=== PATIENT | male | born 1990 | race Caucasian/White ===

== ENCOUNTER 2017-09-13 10:07 | Emergency (ER) | payer BC, SELFPAY ==
[2017-09-13] MEDS ORDERED: Ketorolac Tromethamine 30 MG/ML VIAL ONE (10:20)
[2017-09-13 10:40] LABS: #Basophils 0.1 thou/uL (0.0-0.2); #Eosinphils 0.1 thou/uL (0.0-0.7); #Monocytes 0.4 thou/uL (0.11-0.59); #Neutrophils 5.6 thou/uL (1.40-6.50); %Basophils 0.8 % (0.0-1.0); %Monocytes 5.3 % (0.0-10.0); %Neutrophils 78.9 % (42.0-75.0); Hemoglobin 16.7 g/dL (14.0-18.0); Mean Corpuscular HGB CONC 33.1 g/dL (32.0-36.0); Mean Corpuscular Hemoglobin 26.8 pg (27.0-31.0); Mean Corpuscular Volume 81.1 fl (80.0-94.0); Mean Platelet Volume 6.7 fL (7.4-10.4); Platelet Count 379 thou/uL (130-400); RBC Distribution Width 11.5 % (11.5-14.5); Red Blood Cell (RBC) Count 6.23 mill/uL (4.70-6.10); White Blood Cell (WBC) Count 7.1 thou/uL (4.8-10.8)
[2017-09-13 10:48] LABS: ALT (SGPT) 24 U/L (8-55); AST (SGOT) 19 U/L (5-34); Albumin 4.7 g/dL (3.5-5.0); Alkaline Phosphatase 95 U/L (40-150); Anion Gap 14 mmol/L (10-20); BUN (Urea Nitrogen) 16 mg/dL (8.9-20.6); Bilirubin, Total 0.7 mg/dL (0.2-1.2); Calc. Creatinine Clearance 0 mL/min (70-130); Calcium 10.1 mg/dL (7.8-10.44); Carbon Dioxide 29 mmol/L (22-29); Chloride 98 mmol/L (98-107); Estimated GFR-MDRD 85; Globulin 2.5 g/dL (2.4-3.5); Glucose 282 mg/dL (70-105); Lipase 14 U/L (8-78); Protein, Total 7.2 g/dL (6.0-8.3); Sodium 137 mmol/L (136-145)
--- NOTE | 2017-09-13 11:54 | CT ---
NONCONTRAST ENHANCED CT IMAGES OF THE ABDOMEN AND PELVIS: History: Abdominal pain and diarrhea. Technique: IV and oral contrast was not given per order of the ordering physician. This does decrease the sensitivity for detection of pathology. FINDINGS: The lung bases are unremarkable. No evidence of free intraperitoneal air is seen. The solid organs demonstrate no gross pathology, however, due to the fact that IV contrast was not gi eliezer, solid organ pathology cannot be excluded. The gallbladder has been surgically removed. Adrenal glands are of normal size. No evidence of renal calculi seen. No evidence of hydronephrosis seen. No dilated loops of small bowel seen. A normal appe ndix is visualized. No evidence of colonic dissection seen. IMPRESSION: 1. No evidence of bowel obstruction. 2. Normal appendix. 3. No evidence of renal calculi. POS: [facility]
[2017-09-13 11:57] LABS: Bilirubin Small (Negative); Blood, Urine Negative (Negative); Clarity Clear (Clear); Glucose, Urine (Dipstick) 500 mg/dL (Negative); Leukocyte Negative (Negative); Nitrite Negative (Negative); Protein, Urine (Dipstick) Trace mg/dL (Neg-Trace); Urobilinogen 0.2 mg/dL (0.2-1.0); pH, Urine 5.5 (5.0-9.0)
[2017-09-13 11:58] LABS: Specific Gravity, Urine Greater than 1.035 (1.002-1.036)
[2017-09-13 12:09] LABS: Amphetamine Not Detected (NotDetected); Barbiturates Screen Not Detected (NotDetected); Benzodiazepine Screen Not Detected (NotDetected); Cocaine Metabolite Screen Not Detected (NotDetected); Medtox Control Line Valid? VALID (VALID); Methadone Not Detected (NotDetected); Methamphetamine Not Detected (NotDetected); Opiate Screen Not Detected (NotDetected); Oxycodone Screen Not Detected (NotDetected); Phencyclidine (PCP) Not Detected (NotDetected); THC/Cannabinoid Screen Not Detected (NotDetected); Tricyclic Screen Not Detected (NotDetected)
== END 2017-09-13 13:50 | disposition home or self-care (01) ==
LOC: SCSER 10:07
DX: R11.2 Nausea with vomiting, unspecified (principal); R19.7 Diarrhea, unspecified; E10.9 Type 1 diabetes mellitus without complications; F17.220 Nicotine dependence, chewing tobacco, uncomplicated; J45.909 Unspecified asthma, uncomplicated; Z79.84 Long term (current) use of oral hypoglycemic drugs
CPT/HCPCS: 74176; 80053; 80306; 81003; 83605; 83690; 85025; 96361; 96372; 96374; J1885

== ENCOUNTER 2017-12-25 17:06 | Inpatient (IN) | payer SELFPAY ==
--- NOTE | 2017-12-25 17:49 | RAD ---
PORTABLE CHEST: Date: 12-25-17 Provided Clinical History: Cough, fever, body aches. Comparison: 08-20-13 FINDINGS: Cardiac and mediastinal silhouette is within normal limits. Lungs appear clear. No pleural fluid or p neumothorax apparent. IMPRESSION: No evidence for an acute cardiopulmonary process. POS: [facility]
[2017-12-25 17:50] LABS: Hemoglobin 17.5 g/dL (14.0-18.0); Mean Corpuscular HGB CONC 33.2 g/dL (32.0-36.0); Mean Corpuscular Hemoglobin 28.1 pg (27.0-31.0); Mean Corpuscular Volume 84.6 fL (78.0-98.0); Mean Platelet Volume 7.2 fL (7.4-10.4); Platelet Count 456 thou/uL (130-400); RBC Distribution Width 11.6 % (11.5-14.5); Red Blood Cell (RBC) Count 6.22 mill/uL (4.70-6.10)
[2017-12-25] MEDS ORDERED: Ondansetron HCl/PF 4 MG/2 ML Vial ONE (17:56)
[2017-12-25 18:08] LABS: Band 12 % (5-11); Large Platelets SLIGHT; Lymphocytes 8 % (21-51); MDiff Complete? YES; Monocytes 4 % (0-10); Neutrophil 76 % (42-75); PLT Morphology Comment Appears Increased; RBC Morphology Normal
[2017-12-25 18:11] LABS: ALT (SGPT) 19 U/L (8-55); AST (SGOT) 16 U/L (5-34); Albumin 5.3 g/dL (3.5-5.0); Alkaline Phosphatase 143 U/L (40-150); BUN (Urea Nitrogen) 19 mg/dL (8.9-20.6); Bilirubin, Total 0.5 mg/dL (0.2-1.2); Calc. Creatinine Clearance 0 mL/min (70-130); Calcium 10.3 mg/dL (7.8-10.44); Chloride 99 mmol/L (98-107); Estimated GFR-MDRD 54; Globulin 3.7 g/dL (2.4-3.5); Glucose 437 mg/dL (70-105); Potassium 5.9 mmol/L (3.5-5.1); Sodium 132 mmol/L (136-145)
[2017-12-25 18:15] LABS: Carbon Dioxide Less than 8 mmol/L (22-29)
[2017-12-25] MEDS ORDERED: Dicyclomine 20 MG TAB ONE (18:23)
[2017-12-25] MEDS ORDERED: Pantoprazole 40 MG VIAL ONE (18:23)
[2017-12-25] MEDS ORDERED: Lorazepam 2 MG/ML VIAL ONE (18:53)
[2017-12-25 19:11] LABS: Bilirubin Negative (Negative); Blood, Urine Negative (Negative); Clarity CLEAR (Clear); Glucose, Urine (Dipstick) >=1000 mg/dL (Negative); Leukocyte Negative (Negative); Nitrite Negative (Negative); Protein, Urine (Dipstick) 30 mg/dL (Neg-Trace); Urobilinogen 0.2 mg/dL (0.2-1.0); pH, Urine 5.5 (5.0-9.0)
[2017-12-25 19:12] LABS: Bacteria/HPF None Seen HPF (None Seen); Hyaline Casts/LPF 0-3 HYALINE CAST LPF (0-3 Hyaline); Pathc Cast-AUWi Flag 0.14 (0-2.49); RBC/HPF None Seen HPF (0-3); Squamous Epithelial None Seen HPF (0-3); WBC/HPF None Seen HPF (0-3)
[2017-12-25] MEDS ORDERED: Insulin Regular 300 UNITS/3 ML VIAL ONE (19:22)
[2017-12-25] MEDS ORDERED: Piperacillin/Tazobactam 4.5 GM VIAL ONE (19:23)
[2017-12-25] MEDS ORDERED: Insulin Regular 100 units/100 ml in NS IVPB SCH (19:30)
[2017-12-25] MEDS ORDERED: Metoclopramide HCl 10 MG/2 ML VIAL ONE (19:40)
[2017-12-25] MEDS ORDERED: diphenhydrAMINE 50 MG/ML VIAL ONE (19:40)
[2017-12-25 20:58] LABS: Actual Bicarbonate (HCO3a) 2.3 mEq/L (22-28); CO2 Tension 9.3 mmHg (35.0-45.0); O2 Tension (PaO2) 115.3 mmHg (80.0-100.0); pH, Arterial 7.01 (7.35-7.45)
[2017-12-25 20:59] LABS: Base Excess (BEa) -26.8 mEq/L (-2.0 to +3.0); Calcium, Ionized 1.23 mmol/L (1.12-1.30); Carboxyhemoglobin (COHb) 0.3 gm% (0.0-3.0); Potassium - ABG Lab 5.7 mmol/L (3.70-5.30)
[2017-12-25 21:00] LABS: ALV-art Gradient 22.805 (0-20); Analyzer IN Cardio ER; Puncture Site RRA
[2017-12-25] MEDS ORDERED: Sodium Bicarb 50 MEQ/50 ML Abboject 8.4% SYRINGE ONE (21:10)
[2017-12-25] MEDS ORDERED: Sodium Bicarbonate 100 MEQ in Dextrose 5% in Water 1,000 ML IV SCH (21:30)
[2017-12-25 22:11] LABS: Lactic Acid 2.1 mmol/L (0.5-2.2)
[2017-12-25] MEDS ORDERED: Metoclopramide HCl 10 MG/2 ML VIAL IVP PRN (22:14)
[2017-12-25] MEDS ORDERED: Acetaminophen 650 MG Suppository PR PRN (22:15)
[2017-12-25] MEDS ORDERED: Dextrose 50% Abboject 50 ML SYRINGE SLOW IVP PRN (22:17)
[2017-12-25] MEDS ORDERED: Dextrose 5% in Water 1,000 ML IV PRN (22:17)
[2017-12-25] MEDS ORDERED: Dextrose 5 %-0.45 % NaCl 1,000 ML IV PRN (22:17)
[2017-12-25] MEDS ORDERED: NS 0.9% w/ 20 MEQ KCL 1,000 ML/1,000 ML BAG IV PRN ×2 (22:17)
[2017-12-25] MEDS ORDERED: D5 1/2 NS w/20 mEq KCL 1,000 ML IV PRN (22:17)
[2017-12-25] MEDS ORDERED: Sodium Chloride 0.9% 1,000 ML IV PRN ×4 (22:17)
[2017-12-25] MEDS ORDERED: Potassium Phosphate 9 MMOL in Sodium Chloride 0.9% 100 ML IVPB PRN (22:18)
[2017-12-25] MEDS ORDERED: Magnesium Oxide 400 MG TAB PO PRN ×2 (22:18)
[2017-12-25] MEDS ORDERED: Potassium Phosphate 15 MMOL in Sodium Chloride 0.9% 250 ML 250 ML IV PRN (22:18)
[2017-12-25] MEDS ORDERED: Magnesium 2 GM/NS 0.9% 100 ML 2 GM in Premix Bag 1 BAG IVPB PRN (22:18)
[2017-12-25] MEDS ORDERED: CCU ELECTROLYTE REPLACEMENT PROTOCOL FS PRN (22:18)
[2017-12-25] MEDS ORDERED: Potassium Chloride 40 MEQ in Sodium Chloride 0.9% 250 ML 250 ML IVPB PRN (22:18)
[2017-12-25] MEDS ORDERED: Potassium Chloride 20 MEQ TAB PO PRN (22:18)
[2017-12-25] MEDS ORDERED: Potassium Phosphate 12 MMOL in Sodium Chloride 0.9% 250 ML 250 ML IV PRN (22:18)
[2017-12-25] MEDS ORDERED: Potassium Chloride 40 MEQ in Premix Bag 1 BAG IVPB PRN (22:18)
[2017-12-25] MEDS ORDERED: ADD ELECTROLYTE REPLACEMENT SET TO PROFILE FS SCH (22:30)
--- NOTE | 2017-12-25 22:46 | HP ---
DATE OF ADMISSION: 12/25/2017 CHIEF COMPLAINT: Diabetic ketoacidosis. 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 This episode, he states he began to feel ill one and a half weeks ago. He was seen in an Urgent Care clinic 12/22 and dx'ed with bronchitis and begun on antibiotics. It was in the last 3 days, he was forced to stay indoors and rest. He then began to have profuse protracted vomiting. He denies fever, cough. He does hurt all over. Flu test in the ER is negative; however, he finally came to the ER when he could not stop vomiting. In the emergency room, his blood sugar was 437, carbon dioxide less than 8. Sodium 132, potassium 5.9, BUN 19, creatinine 1.53. His WBCs were elevated at 20,000. He is hemoconcentrated and there is some bandemia noted. His beta hydroxybutyrate is 11.6. Urinalysis shows greater than 80 ketones. He will be admitted to [facility] for treatment of diabetic ketoacidosis. Rehydration has already begun in the ER as well as insulin drip. PAST MEDICAL HISTORY: As mentioned above, last hospitalization was 05/2015 at which he was admitted for diabetic ketoacidosis. He has been an insulin- dependent diabetic for several years. He is felt to be a type 1 diabetic. He also has recurrent episodes of asthma as well. PAST SURGICAL HISTORY: Includes cholecystectomy, hernia repair, tonsillectomy and adenoidectomy. There is no prior psychiatric history. SOCIAL HISTORY: He is , works in an oil field, chews tobacco, drinks socially. FAMILY HISTORY: Replete with diabetes. ALLERGIES: He is allergic to HYDROCODONE. CURRENT MEDICATIONS: Include Tresiba once daily. The exact dosage is unknown at this time. REVIEW OF SYSTEMS: Constitutionally he has been fatigued, weak, chills. Denies fever. Aches all over, however. HEENT: Complains of sore throat pain. No drainage from ears, nose or throat. Chest: Denies cough or dyspnea at this time or wheezing. Cardiovascular: Denies chest pain or palpitations. GI : Has profuse nausea and vomiting. Denies diarrhea. : No blood in urine or stool, or dysuria. Musculoskeletal: Hurts diffusely in the major muscle groups, but no specific areas of swelling, edema or trauma. Skin: Shows no acute lesions. Neurologic: He is agitated and speaks with slightly slurred speech. PHYSICAL EXAMINATION: At the time of admission: VITAL SIGNS: Pulse is 126, blood pressure 145/78. He is afebrile. GENERAL: This is a well-developed, well-nourished adult male. HEENT: Normocephalic and atraumatic. Pupils equal, round, and reactive to light. TMs, nares, pharynx are clear. NECK: Supple, trachea midline, no mass. CHEST: Currently, clear to auscultation. HEART: Regular rate and rhythm, tachycardic. ABDOMEN: Tender mid epigastrically from protracted vomiting, but otherwise no guarding, rebound or organomegaly. : Deferred. EXTREMITIES: Without clubbing, cyanosis, or edema. Normal range of motion present. Symmetrical muscular tone development noted. SKIN: Slightly poor turgor due to dehydration. Otherwise, no acute lesions. NEUROLOGIC: He has slight altered mental status at this time with some light sedation from the medications he has received for nausea, Ativan and Benadryl included. Sensory exam is grossly intact. Unable to test other features neurologically at this time. LABORATORY AND X-RAY FINDINGS: Lab work thus far showed WBCs 20 K, hemoglobin 17.5, hematocrit 52.6, platelets at 456. Neutrophils 76, 12 bands, 8 lymphocytes. Sodium is 132, potassium 5.9, chloride 99, CO2 less than 8. BUN 19, creatinine 1.53, glucose 437 on admission. Lactic acid is 2.1. Liver functions unremarkable. Albumin is high as well as globulin high thought to be due to hemoconcentration. Urinalysis shows 30 protein, greater than 1000 glucose with greater than 80 ketones and the beta hydroxybutyrate 11.64. Chest x-ray no acute illness noted. ASSESSMENT: 1. Diabetic ketoacidosis. 2. Type 1 diabetes with history of noncompliance. 3. Asthma. 4. Bronchitis PLAN: The patient will be admitted to [facility]. He has already received boluses of fluid and insulin. We will put him on an insulin drip followed the DKA protocol. Blood cultures have been obtained, antibiotics begun for coverage of an elevated white count. We will continue to seek the source, has repeated chest x-ray and serial reevaluation and will go ahead and provide neb treatments on a p.r.n. status. MTDD
[2017-12-25] MEDS: Acetaminophen 325 MG TAB PO PRN (22:47)
[2017-12-25 23:11] VITALS: BMI 26.8
[2017-12-26] MEDS: Piperacillin/Tazobactam 4.5 GM in Sodium Chloride 0.9% 100 ML IVPB SCH ×4 (01:29→20:39)
[2017-12-26 02:27] LABS: #Eosinphils 0.1 thou/uL (0.0-0.7); #Lymphocytes 1.9 thou/uL (1.20-3.40); #Monocytes 1.1 thou/uL (0.11-0.59); #Neutrophils 11.1 thou/uL (1.40-6.50); %Basophils 0.2 % (0.0-1.0); %Eosinophils 0.4 % (0.0-10.0); %Lymphocytes 13.5 % (21.0-51.0); %Monocytes 7.8 % (0.0-10.0); %Neutrophils 78.1 % (42.0-75.0); Hemoglobin 14.1 g/dL (14.0-18.0); Mean Corpuscular HGB CONC 34.6 g/dL (32.0-36.0); Mean Corpuscular Hemoglobin 28.3 pg (27.0-31.0); Mean Corpuscular Volume 81.8 fL (78.0-98.0); Mean Platelet Volume 6.6 fL (7.4-10.4); Platelet Count 346 thou/uL (130-400); RBC Distribution Width 11.2 % (11.5-14.5); Red Blood Cell (RBC) Count 4.99 mill/uL (4.70-6.10); White Blood Cell (WBC) Count 14.2 thou/uL (4.8-10.8)
[2017-12-26 03:09] LABS: Anion Gap 15 mmol/L (10-20); BUN (Urea Nitrogen) 11 mg/dL (8.9-20.6); Calc. Creatinine Clearance 127 mL/min (70-130); Calcium 8.4 mg/dL (7.8-10.44); Carbon Dioxide 11 mmol/L (22-29); Chloride 111 mmol/L (98-107); Estimated GFR-MDRD 80; Glucose 202 mg/dL (70-105); Potassium 3.9 mmol/L (3.5-5.1); Sodium 133 mmol/L (136-145)
[2017-12-26] MEDS: Vancomycin HCl 1 GM in Premix Bag 1 BAG IVPB SCH ×3 (04:32→22:29)
[2017-12-26] MEDS: Acetaminophen 325 MG TAB PO PRN (04:39)
[2017-12-26 06:52] LABS: Anion Gap 11 mmol/L (10-20); BUN (Urea Nitrogen) 10 mg/dL (8.9-20.6); Calc. Creatinine Clearance 131 mL/min (70-130); Calcium 8.4 mg/dL (7.8-10.44); Carbon Dioxide 15 mmol/L (22-29); Chloride 112 mmol/L (98-107); Estimated GFR-MDRD 83; Glucose 182 mg/dL (70-105); Potassium 3.5 mmol/L (3.5-5.1); Sodium 134 mmol/L (136-145)
[2017-12-26 07:03] LABS: pH, Arterial 7.34 (7.35-7.45)
[2017-12-26 07:04] LABS: Actual Bicarbonate (HCO3a) 17.6 mEq/L (22-28); Base Excess (BEa) -7.1 mEq/L (-2.0 to +3.0); CO2 Tension 33.4 mmHg (35.0-45.0); Carboxyhemoglobin (COHb) 1.1 gm% (0.0-3.0); Hemoglobin (Hb) 14.3 g/dL (14.0-18.0); O2 Tension (PaO2) 81.7 mmHg (80.0-100.0)
[2017-12-26 07:05] LABS: Calcium, Ionized 1.22 mmol/L (1.12-1.30); Potassium - ABG Lab 3.7 mmol/L (3.70-5.30); Puncture Site RR
--- NOTE | 2017-12-26 08:35 | RAD ---
CHEST 1 VIEW: COMPARISON: 12/25/17. HISTORY: Cough. FINDINGS: Normal cardiac silhouette. The pulmonary vessels and hilum are normal. Costophrenic angles are amada r. No masses or consolidation. No pneumothorax or osseous abnormalities. IMPRESSION: No acute cardiopulmonary process. POS: [facility]
[2017-12-26] MEDS ORDERED: Montelukast Sodium 10 mg Tablet PO SCH (09:00)
--- NOTE | 2017-12-26 10:46 | PDOC.PULCN ---
<Batool Antonio - Last Filed: 12/26/17 10:32> Pulmonology Consult: HPI - Date of Consult Date: 12/26/17 Time: 09:00 - Consult Details Reason for Consult: IMCU Admission for DKA Requesting Physician: Rajat Craig - History of Present Illness HPI: ANGELICA MCCALL JR is a 27 year-old M with PMH of T1DM and asthma presents to the ED with 1.5w hx of cough with nonproductive sputum and generally ill-feeling with decreased appetite. He went to an urgent care setting and received Azithromycin for a likely bronchitis but still felt ill. Two days ago started having N/V/D. He reports his boss has been sick with cold-like sx. He was found to be in DKA on admission with initial pH of 7.01 and pCO2 of 9. He was started on DKA protocol and has done well overnight. Now reports n/v is resolved, no abd pain, and feels overall better. He still reports no appetite. Home insulin regimen is Humulin 70/30 30U qD. Patient reports compliance with this medication although does not check his BG. Pulmonology Consult: ROS - Review of Systems Constitutional: negative: fever, chills Cardiovascular: negative: chest pain, palpitations, edema Respiratory: non-productive cough. negative: chest tightness, pain on deep breathing, short of breath, wheezing Pulmonology Consult: [facility] Source: patient Past Medical History: 1. T1DM 2. Asthma - Family History Family history: reviewed and not pertinent - Social History Smoking Status: Other (chewing tobacco) Alcohol Use: occasional Drug Use History: pt denies any use Living Situation: independent Pulmonology Consult: Meds - Medications MAR Reviewed: Yes Medications: Current Medications Acetaminophen (Tylenol) 650 mg PO Q4H PRN PRN Reason: Headache/Fever or Pain Last Admin: 12/26/17 04:39 Dose: 650 mg Acetaminophen (Tylenol) 650 mg NJ Q4H PRN PRN Reason: Headache/Fever or Pain Albuterol/Ipratropium (Duoneb) 3 ml NEB Q4H PRN PRN Reason: SOB &/or Wheezing Dextrose/Water (Dextrose 50%) 25 gm SLOW IVP PRN PRN PRN Reason: HYPOGLYCEMIA PROTOCOL Glucagon (Glucagon) 1 mg IM PRN PRN PRN Reason: HYPOGLYCEMIA PROTOCOL Insulin Human Regular 100 (units/ Sodium Chloride) 101 mls @ 0 mls/hr IVPB INF GORDY; Protocol Last Admin: 12/26/17 03:29 Dose: 101 mls Sodium Chloride (Normal Saline 0.9%) 1,000 mls @ 1,000 mls/hr IV .Q1H PRN; Protocol PRN Reason: STEP 1: DKA PROTOCOL Sodium Chloride (Normal Saline 0.9%) 1,000 mls @ 500 mls/hr IV .Q2H PRN PRN Reason: STEP 1: DKA PROTOCOL Potassium Chloride/Sodium Chloride (Ns 0.9% W/ 20 Meq Kcl) 1,000 ml in 1,000 mls @ 500 mls/hr IV .Q2H PRN; Protocol PRN Reason: STEP 2: DKA PROTOCOL Sodium Chloride (Normal Saline 0.9%) 1,000 mls @ 500 mls/hr IV INF PRN; Protocol PRN Reason: STEP 2: DKA PROTOCOL Potassium Chloride/Sodium Chloride (Ns 0.9% W/ 20 Meq Kcl) 1,000 ml in 1,000 mls @ 250 mls/hr IV .Q4H PRN PRN Reason: STEP 3: DKA PROTOCOL Sodium Chloride (Normal Saline 0.9%) 1,000 mls @ 250 mls/hr IV .Q4H PRN PRN Reason: STEP 3:DKA PROTOCOL Last Admin: 12/25/17 22:57 Dose: 1,000 mls Dextrose/Sodium Chloride (D5 1/2 Ns) 1,000 mls @ 250 mls/hr IV INF PRN; Protocol PRN Reason: STEP 4: DKA PROTOCOL Last Admin: 12/26/17 00:26 Dose: 1,000 mls Potassium Chloride/Dextrose/Sod Cl (D5 1/2 Ns W/20 Meq Kcl) 1,000 mls @ 250 mls /hr IV INF PRN; Protocol PRN Reason: STEP 4: DKA PROTOCOL Last Admin: 12/26/17 03:30 Dose: 1,000 mls Dextrose/Water (D5w) 1,000 mls @ 0 mls/hr IV INF PRN PRN Reason: HYPOGLYCEMIA PROTOCOL Potassium Chloride 40 meq/ (Sodium Chloride) 270 mls @ 135 mls/hr IVPB ASDIR PRN PRN Reason: FOR SERUM K+ 2.5 - 3.5 Potassium Chloride 40 meq/ (Device) 100 mls @ 50 mls/hr IVPB ASDIR PRN PRN Reason: FOR SERUM K+ 2.5 - 3.5 Magnesium Sulfate 1 gm/ Sodium (Chloride) 102 mls @ 102 mls/hr IV PRN PRN PRN Reason: MAG LEVEL 1.4 - 2.0 Magnesium Sulfate 2 gm/ Device 100 mls @ 100 mls/hr IVPB ASDIR PRN PRN Reason: MAGNESIUM < 1.4 Potassium Phosphate 9 mmol/ (Sodium Chloride) 103 mls @ 25.75 mls/hr IVPB ASDIR PRN PRN Reason: Phosphate 1.0-1.8 Potassium Phosphate 12 mmol/ (Sodium Chloride) 254 mls @ 63.5 mls/hr IV ASDIR PRN PRN Reason: Serum phosphate 0.5-0.9 Potassium Phosphate 15 mmol/ (Sodium Chloride) 255 mls @ 63.75 mls/hr IV ASDIR PRN PRN Reason: Serum Phos < 0.5 Piperacillin Sod/Tazobactam (Sod 4.5 gm/ Sodium Chloride) 100 mls @ 200 mls/hr IVPB 0200,0800,1400,2000 [facility] Last Admin: 12/26/17 09:57 Dose: 100 mls Vancomycin HCl 1 gm/ Device 200 mls @ 200 mls/hr IVPB 0500,1300,2100 [facility] Last Admin: 12/26/17 04:32 Dose: 200 mls Magnesium Oxide (Magnesium Oxide) 400 mg PO BIDPRN PRN PRN Reason: FOR SERUM MAG 1.4 - 2.0 Magnesium Oxide (Magnesium Oxide) 800 mg PO PRN PRN PRN Reason: FOR SERUM MAG < 1.4 Metoclopramide HCl (Reglan) 10 mg IVP Q2H PRN PRN Reason: Nausea Miscellaneous Medication (Phos-Nak) 1 pkt PO TIDPRN PRN PRN Reason: FOR PHOS LEVEL 1.0 - 1.8 Miscellaneous Medication (Phos-Nak) 2 pkt PO TIDPRN PRN PRN Reason: FOR PHOS LEVEL 0.5 - 1.0 Miscellaneous Medication (Pharmacy To Dose) 0 each IVPB PRN PRN PRN Reason: V[facility] Pharmacy to Dose Montelukast Sodium (Singulair) 10 mg PO DAILY [facility] Last Admin: 12/26/17 09:57 Dose: 10 mg Ccu Electrolyte (Replacement Protocol) 0 each FS PRN PRN PRN Reason: FOR ELECTROLYTE REPLACEMENT Pantoprazole Sodium (Protonix) 40 mg PO QAM [facility] Last Admin: 12/26/17 09:57 Dose: 40 mg Potassium Chloride (K-Dur) 40 meq PO ASDIR PRN PRN Reason: FOR SERUM K+ 2.5 - 3.5 Potassium Chloride (Klor-Con) 40 meq PER TUBE ASDIR PRN PRN Reason: FOR SERUM K+ 2.5-3.5 Sodium Chloride (Flush - Normal Saline) 10 ml IVF PRN PRN PRN Reason: Saline Flush - Allergies Allergies/Adverse Reactions: Allergies Allergy/AdvReac Type Severity Reaction Status Date / Time hydrocodone bitartrate Allergy Verified 08/20/13 16:40 [From Vicodin] Pulmonology Consult: PE - Physical Exam Constitutional: NAD (conversational) HEENT: PERRLA, oral pharynx no lesions Neck: no nodes, supple Cardiovascular: RRR, no significant murmur Respiratory: clear to auscultation bilaterally. negative: accessory muscle use Gastrointestinal: soft, non-tender, positive bowel sounds Musculoskeletal: no edema, pulses present Neurological: non-focal, moves all 4 limbs Psychiatric: normal affect, A&O x 3 Pulmonology Consult: Results - Labs Result Diagrams: 12/26/17 02:09 12/26/17 05:51 - ABG Interpretation Attestation: I reviewed and interpreted this ABG. ABG Results: ABG pH 7.34 (7.35-7.45) L 12/26/17 06:39 ABG pCO2 33.4 mmHg (35.0-45.0) L 12/26/17 06:39 ABG O2 Sat Calc/Yoel 97.1 % (94.0-98.0) 12/26/17 06:39 ABG Base Excess -7.1 mEq/L (-2.0 to +3.0) L 12/26/17 06:39 Interpretation: metabolic acidosis - Radiology Interpretation Chest x-ray Status: image reviewed by me, report reviewed by me Additional comments: No infiltrate seen. No evidence of PNA. Pulmonology Consult: A/P - Problem (1) DKA, type 1 Current Visit: Yes Code(s): E10.10 - TYPE 1 DIABETES MELLITUS WITH KETOACIDOSIS WITHOUT COMA Status: Acute (2) Asthma Current Visit: Yes Code(s): J45.909 - UNSPECIFIED ASTHMA, UNCOMPLICATED Status: Acute (3) Viral illness Current Visit: Yes Status: Acute - Time Time: 50% of the time was spent in coordination of care (as documented) at patient's floor/unit and/or counseling patient. Time with Patient: greater than 50 minutes - Plan Plan: DKA in T1DM - Improving. AG closed, continues to have mild degree of acidosis 2/2 IVF. Will decrease IVF to 120ml/hr. Continue insulin drip with rate no less than 2u/ hr until patient has an appetite. Plan to overlap SC Humulin 70/30 30U with insulin drip- will turn off 1hr after SC insulin given. Viral Illness - Likely with hx. Did arrive with elevated WBC and bandemia but resolved today - could be 2/2 DKA. Will continue Vanc and Zosyn until cx negative. Asthma - No respiratory difficulty at this time. Will give Albuterol prn. <Prabhjot Cunningham - Last Filed: 12/26/17 15:32> Pulmonology Consult: HPI - History of Present Illness HPI: ANGELICA MCCALL JR is a 27 year-old M Pulmonology Consult: Meds - Medications Medications: Current Medications Acetaminophen (Tylenol) 650 mg PO Q4H PRN PRN Reason: Headache/Fever or Pain Last Admin: 12/26/17 04:39 Dose: 650 mg Acetaminophen (Tylenol) 650 mg NJ Q4H PRN PRN Reason: Headache/Fever or Pain Albuterol/Ipratropium (Duoneb) 3 ml NEB Q4H PRN PRN Reason: SOB &/or Wheezing Dextrose/Water (Dextrose 50%) 25 gm SLOW IVP PRN PRN PRN Reason: HYPOGLYCEMIA PROTOCOL Glucagon (Glucagon) 1 mg IM PRN PRN PRN Reason: HYPOGLYCEMIA PROTOCOL Dextrose/Water (D5w) 1,000 mls @ 0 mls/hr IV INF PRN PRN Reason: HYPOGLYCEMIA PROTOCOL Piperacillin Sod/Tazobactam (Sod 4.5 gm/ Sodium Chloride) 100 mls @ 200 mls/hr IVPB 0200,0800,1400,2000 [facility] Last Admin: 12/26/17 13:23 Dose: 100 mls Vancomycin HCl 1 gm/ Device 200 mls @ 200 mls/hr IVPB 0500,1300,2100 [facility] Last Admin: 12/26/17 13:24 Dose: 200 mls Potassium Chloride/Sodium Chloride (1/2 Ns W/Kcl 20 Meq) 1,000 mls @ 75 mls/hr IV .[id number] GORDY Dextrose/Water (D5w) 1,000 mls @ 0 mls/hr IV .Q0M PRN PRN Reason: Hypoglycemia Insulin Human Lispro (Humalog) 0 units SC .MILD SLIDING SCALE PRN PRN Reason: Mild Correctional Scale Insulin Human NPH (Humulin N) 20 unit SC NOW [facility] Stop: 12/26/17 17:00 Insulin Human NPH (Humulin N) 15 unit SC BID [facility] Metoclopramide HCl (Reglan) 10 mg IVP Q2H PRN PRN Reason: Nausea Miscellaneous Medication (Pharmacy To Dose) 0 each IVPB PRN PRN PRN Reason: [facility]ANC Pharmacy to Dose Montelukast Sodium (Singulair) 10 mg PO DAILY [facility] Last Admin: 12/26/17 09:57 Dose: 10 mg Ccu Electrolyte (Replacement Protocol) 0 each FS PRN PRN PRN Reason: FOR ELECTROLYTE REPLACEMENT Pantoprazole Sodium (Protonix) 40 mg PO QAM [facility] Last Admin: 12/26/17 09:57 Dose: 40 mg Sodium Chloride (Flush - Normal Saline) 10 ml IVF PRN PRN PRN Reason: Saline Flush Pulmonology Consult: Results - Labs Result Diagrams: 12/26/17 02:09 12/26/17 05:51 - ABG Interpretation ABG Results: ABG pH 7.34 (7.35-7.45) L 12/26/17 06:39 ABG pCO2 33.4 mmHg (35.0-45.0) L 12/26/17 06:39 ABG O2 Sat Calc/Yoel 97.1 % (94.0-98.0) 12/26/17 06:39 ABG Base Excess -7.1 mEq/L (-2.0 to +3.0) L 12/26/17 06:39 Pulmonology Consult: A/P - Time Time: 50% of the time was spent in coordination of care (as documented) at patient's floor/unit and/or counseling patient. Attending Addendum - Attending Addendum Date/Time: 12/26/17 1531 I personally evaluated the patient and discussed the management with Dr. Antonio. I agree with the History, Examination, Assessment and Plan documented above with any addition or exceptions noted below. 70 minutes have been devoted to this patient in various activities. I personally reviewed all imaging studies and laboratory data noted within this document. For fifty percent of this time, I was interacting with the patient at the bedside or coordinating care with the care team. For the remainder of the time I was immediately available to the patient in the hospital unit.
[2017-12-26 11:59] LABS: Hemoglobin A1c 10.8 % (4.0-6.0)
[2017-12-26] MEDS ORDERED: HumaLOG 300 UNITS/3 ML VIAL SC PRN (14:52)
[2017-12-26] MEDS ORDERED: Dextrose 5% in Water 1,000 ML IV PRN (14:52)
[2017-12-26] MEDS ORDERED: NPH, Human Insulin Isophane 300 UNIT/3 ML VIAL SC SCH ×2 (15:00→21:00)
[2017-12-26] MEDS: 1/2 NS w/KCL 20 mEq 1,000 ML IV SCH (15:44)
[2017-12-26] MEDS: guaiFENesin ER 600 MG TAB PO SCH ×2 (17:17→22:29)
[2017-12-26 20:30] LABS: Vancomycin, Trough 12.5 ug/mL
[2017-12-27 05:45] VITALS: BP 117/72; TEMP 98.2
[2017-12-27 06:00] LABS: Anion Gap 16 mmol/L (10-20); BUN (Urea Nitrogen) 9 mg/dL (8.9-20.6); Calc. Creatinine Clearance 137 mL/min (70-130); Calcium 8.6 mg/dL (7.8-10.44); Carbon Dioxide 16 mmol/L (22-29); Chloride 107 mmol/L (98-107); Estimated GFR-MDRD 87; Glucose 304 mg/dL (70-105); Sodium 135 mmol/L (136-145)
[2017-12-27] MEDS: Vancomycin HCl 1 GM in Premix Bag 1 BAG IVPB SCH (06:00)
[2017-12-27] MEDS: 1/2 NS w/KCL 20 mEq 1,000 ML IV SCH (06:02)
[2017-12-27] MEDS: Piperacillin/Tazobactam 4.5 GM in Sodium Chloride 0.9% 100 ML IVPB SCH (06:02)
[2017-12-27] MEDS ORDERED: guaiFENesin ER 600 MG TAB PO SCH (09:00)
--- NOTE | 2017-12-29 20:32 | PQF ---
ANGELICA MCCALL JR, MICHAEL E MD [id number] CLINICAL DOCUMENTATION CLARIFICATION FORM: POST DISCHARGE Addendum to original discharge summary date: ____ Late entry note date: __ DATE: 12/29/2017 ATTN: MELITON ROQUE MD Please exercise your independent, professional judgment in responding to the clarification form. Clinical indicators are provided on the bottom of this form for your review Please check appropriate box(es): [ ] Sepsis due to: (Pna, UTI, gangrenous gall bladder, etc.) Due to: [ ] Device (please specify) [ ] Implant [ ] Graft [ ] Infusion [ ] SIRS due to non-infectious process (please specify etiology) [ ] with organ dysfunction [ ] without organ dysfunction [ ] Severe sepsis with acute organ dysfunction of: (Examples: respiratory failure, encephalopathy, acute kidney failure, other) [ ] Septic Shock [ ] Localized infection without sepsis [ x ] Other diagnosis Asthmaticbronchitis [ ] Unable to determine In addition, please specify: Present on Admission (POA): [ x ] Yes [ ] No [ ] Unable to determine For continuity of documentation, please document condition throughout progress notes and discharge summary. Thank You. CLINICAL INDICATORS - SIGNS / SYMPTOMS / LABS: H&P Pulse 126, BP 145/78, afebrile WBC 20,000, Lactic Acid 2.1 Bandemia DKA, Asthma, Bronchitis Continue to seek the source Blood Cultures- No growth ER Sepsis Alert Resp less than 12 or greater then 20/min or PaCO2 <32 Heart rate >90 Productive cough/PNA ER BP 138/81, Pulse 132, Resp 26, Temp 97.6 RISK FACTORS: Infection/Bacteremia Diabetes TREATMENTS: Fluids, Antibiotics Blood cultures (This form is maintained as a part of the permanent medical record) 2014 [employer]. All Rights Reserved Richardson [email or web address] [phone] MTDD
--- NOTE | 2018-01-07 13:15 | EKG ---
Test Reason : Blood Pressure : / mmHG Vent. Rate : 134 BPM Atrial Rate : 134 BPM P-R Int : 130 ms QRS Dur : 078 ms QT Int : 296 ms P-R-T Axes : 063 061 053 degrees QTc Int : 442 ms Sinus tachycardia Possible Left atrial enlargement Borderline ECG Confirmed by JAYDEN PICKARD ([id number]), senior technical editor BRONSON BERG ([id number]) on 01/07/2018 1:15:25 PM Referred By: Confirmed By:JAYDEN PICKARD
== END 2017-12-27 09:28 | disposition home or self-care (01) | DRG 639 ==
LOC: ERS 17:06 → CCU 20:30 → 3SE 12-26 21:10
PROVIDERS: ADMIT Specialist; ATTEND Specialist
DX: E10.10 Type 1 diabetes mellitus with ketoacidosis without coma (principal); Z91.14 Patient's other noncompliance with medication regimen; D72.825 Bandemia; Z79.4 Long term (current) use of insulin; J45.909 Unspecified asthma, uncomplicated; Z90.49 Acquired absence of other specified parts of digestive tract; F17.220 Nicotine dependence, chewing tobacco, uncomplicated; R45.1 Restlessness and agitation; R47.81 Slurred speech; B34.9 Viral infection, unspecified; Z91.81 History of falling
CPT/HCPCS: 36415; 36416; 71045; 80048; 80053; 80202; 81003; 81015; 82010; 82805; 83036; 83605; 85025; 87040; 87804; 93005; 94640; 96361; 96365; 96366; 96367; 96368; 96375; A4216; C9113; J1200; J1815; J2060; J2405; J2543; J2765; J3370; J7050; J7070; J7620

== ENCOUNTER 2018-03-01 14:24 | Inpatient (IN) | payer MEDICAID, SELFPAY ==
[2018-03-01] MEDS ORDERED: Ondansetron PF 4 MG/2 ML Vial ONE ×2 (14:42→18:20)
[2018-03-01 15:03] LABS: #Basophils 0.1 thou/uL (0.0-0.2); #Lymphocytes 1.2 thou/uL (1.20-3.40); #Monocytes 0.7 thou/uL (0.11-0.59); #Neutrophils 13.9 thou/uL (1.40-6.50); %Basophils 0.4 % (0.0-1.0); %Eosinophils 0.1 % (0.0-10.0); %Lymphocytes 7.4 % (21.0-51.0); %Monocytes 4.6 % (0.0-10.0); %Neutrophils 87.5 % (42.0-75.0); Hemoglobin 16.6 g/dL (14.0-18.0); Mean Corpuscular HGB CONC 31.3 g/dL (32.0-36.0); Mean Corpuscular Hemoglobin 27.4 pg (27.0-31.0); Mean Corpuscular Volume 87.6 fL (78.0-98.0); Mean Platelet Volume 7.4 fL (7.4-10.4); Platelet Count 424 thou/uL (130-400); Red Blood Cell (RBC) Count 6.06 mill/uL (4.70-6.10); White Blood Cell (WBC) Count 15.9 thou/uL (4.8-10.8)
[2018-03-01 15:10] LABS: Base Excess-Venous -15.5 mmol/L (0 (+/- 2.5)); Bicarbonate (HCO3v) 10.6 mmol/L (1.0-85.0); CO2 Tension (PvCO2) 26.7 mmHg (41.0-51.0); Hemoglobin - Calc 17.5 g/dL (12.0-18.0); O2 Tension (PvO2) 59.2 mmHg (35.0-45.0); Potassium 4.8 mmol/L (3.4-4.7); T. Carbon Dioxide 11.4 mmol/L (1.0-85.0); pH (Venous) 7.206 (7.35-7.45); vO2 Saturation-calc 84.9 % (94-98)
[2018-03-01 15:21] LABS: ALT (SGPT) 30 U/L (8-55); AST (SGOT) 33 U/L (5-34); Albumin 4.9 g/dL (3.5-5.0); Alkaline Phosphatase 123 U/L (40-150); Anion Gap 34 mmol/L (10-20); BUN (Urea Nitrogen) 16 mg/dL (8.9-20.6); Bilirubin, Total 0.5 mg/dL (0.2-1.2); Calc. Creatinine Clearance 0 mL/min (70-130); Chloride 101 mmol/L (98-107); Estimated GFR-MDRD 74; Globulin 2.8 g/dL (2.4-3.5); Glucose 292 mg/dL (70-105); Lipase 20 U/L (8-78); Potassium 5.2 mmol/L (3.5-5.1); Protein, Total 7.7 g/dL (6.0-8.3); Sodium 138 mmol/L (136-145)
[2018-03-01] MEDS ORDERED: diphenhydrAMINE 50 MG/ML VIAL ONE (15:23)
[2018-03-01] MEDS ORDERED: Metoclopramide HCl 10 MG/2 ML VIAL ONE (15:23)
[2018-03-01 15:26] LABS: Carbon Dioxide 8 mmol/L (22-29)
--- NOTE | 2018-03-01 16:07 | RAD ---
CHEST ONE VIEW: History: Nausea, vomiting. Comparison: 12-26-17 FINDINGS: Cardiac silhouette is magnified by projection. Pulmonary vasculature is unremarkable. Mediastinum is midline. There is no confluent airspace consolidation or evidence of pneumothorax. pvc monitor le ads overlie the chest. IMPRESSION: No active cardiopulmonary abnormalities are demonstrated. POS: [facility]
[2018-03-01] MEDS ORDERED: Insulin Regular 300 UNITS/3 ML VIAL ONE (16:12)
[2018-03-01 16:52] LABS: Bilirubin Negative (Negative); Blood, Urine Negative (Negative); Clarity CLEAR (Clear); Glucose, Urine (Dipstick) >=1000 mg/dL (Negative); Leukocyte Negative (Negative); Nitrite Negative (Negative); Protein, Urine (Dipstick) Trace mg/dL (Neg-Trace); Specific Gravity, Urine 1.021 (1.002-1.036); Urobilinogen 0.2 mg/dL (0.2-1.0)
[2018-03-01] MEDS ORDERED: Acetaminophen 325 MG TAB PO PRN (18:42)
[2018-03-01] MEDS ORDERED: Dextrose 5 %-0.45 % NaCl 1,000 ML IV PRN (18:43)
[2018-03-01] MEDS ORDERED: Sodium Chloride 0.9% 1,000 ML IV PRN ×4 (18:43)
[2018-03-01] MEDS ORDERED: Dextrose 5% in Water 1,000 ML IV PRN (18:43)
[2018-03-01] MEDS ORDERED: D5 1/2 NS w/20 mEq KCL 1,000 ML IV PRN (18:43)
[2018-03-01] MEDS ORDERED: NS 0.9% w/ 20 MEQ KCL 1,000 ML/1,000 ML BAG IV PRN ×2 (18:43)
[2018-03-01] MEDS ORDERED: Dextrose 50% Abboject 50 ML SYRINGE SLOW IVP PRN (18:47)
[2018-03-01] MEDS ORDERED: Potassium Chloride 40 MEQ in Sodium Chloride 0.9% 250 ML 250 ML IVPB PRN (18:48)
[2018-03-01] MEDS ORDERED: Potassium Chloride 20 MEQ TAB PO PRN (18:48)
[2018-03-01] MEDS ORDERED: Potassium Phosphate 12 MMOL in Sodium Chloride 0.9% 250 ML 250 ML IV PRN (18:48)
[2018-03-01] MEDS ORDERED: Potassium Phosphate 15 MMOL in Sodium Chloride 0.9% 250 ML 250 ML IV PRN (18:48)
[2018-03-01] MEDS ORDERED: CCU ELECTROLYTE REPLACEMENT PROTOCOL FS PRN (18:48)
[2018-03-01] MEDS ORDERED: Magnesium Oxide 400 MG TAB PO PRN ×2 (18:48)
[2018-03-01] MEDS ORDERED: Potassium Phosphate 9 MMOL in Sodium Chloride 0.9% 100 ML IVPB PRN (18:48)
[2018-03-01] MEDS ORDERED: Potassium Chloride 40 MEQ in Premix Bag 1 BAG IVPB PRN (18:48)
[2018-03-01] MEDS ORDERED: Magnesium 2 GM/NS 0.9% 100 ML 2 GM in Premix Bag 1 BAG IVPB PRN (18:48)
[2018-03-01 18:50] LABS: Anion Gap 23 mmol/L (10-20); BUN (Urea Nitrogen) 16 mg/dL (8.9-20.6); Calc. Creatinine Clearance 0 mL/min (70-130); Calcium 8.2 mg/dL (7.8-10.44); Carbon Dioxide 11 mmol/L (22-29); Chloride 110 mmol/L (98-107); Estimated GFR-MDRD 81; Glucose 259 mg/dL (70-105); Potassium 5.3 mmol/L (3.5-5.1); Sodium 139 mmol/L (136-145)
[2018-03-01 19:30] LABS: Lactic Acid 1.9 mmol/L (0.5-2.2)
[2018-03-01 20:40] VITALS: BMI 24.5
[2018-03-01] MEDS: Ondansetron PF 4 MG/2 ML Vial IVP PRN (21:37)
[2018-03-01] MEDS: Calcium Carbonate 500 MG ChewTAB PO PRN (21:53)
[2018-03-01] MEDS: Sodium Chloride 0.9% 1,000 ML IV SCH (21:56)
[2018-03-01] MEDS ORDERED: Insulin Regular 300 UNITS/3 ML VIAL SC PRN ×2 (22:34)
[2018-03-02] MEDS: Calcium Carbonate 500 MG ChewTAB PO PRN ×3 (00:50→20:21)
--- NOTE | 2018-03-02 00:51 | HP ---
DATE OF ADMISSION: 03/01/2018 CHIEF COMPLAINT: Diabetic ketoacidosis with hyperglycemia. HISTORY OF PRESENT ILLNESS: The patient is a 28-year-old male who unfortunately is known to be a brittle insulin-dependent diabetic. He was here for a similar admission in early December of this year. His sugars were not particularly high but he was extremely sick and dehydrated requiring mainly rehydration and did need an insulin drip. On this admission, he admits to having gone out drinking the night before with a lot of alcoholic beverages and then woke up this morning vomiting and he has been vomiting all day. He arrives with a blood sugar of 290, a pH of 7.2 and a lactic acid of 6. He is very dry and even after 2 liters, he has not urinated very much. PAST MEDICAL HISTORY: As mentioned above, hospitalized in December for similar incident of diabetic ketoacidosis, insulin-dependent diabetes. He has been thought to be a type 1 diabetic by other physicians. He has asthma. PAST SURGICAL HISTORY: Includes cholecystectomy, hernia repair, tonsillectomy and adenoidectomy. There is no psychiatric history. SOCIAL HISTORY: He is . He works in [employer] field. Chews tobacco. Drinks socially. FAMILY HISTORY: Has diabetes on both sides. ALLERGIES: He is allergic to HYDROCODONE. MEDICATIONS: On admission include metformin 500 mg once a day and Novolin 70/ 30 of which he cannot remember the dose. REVIEW OF SYSTEMS: At the time of admission: Constitutionally: He is weak, fatigued, having chills, lethargic, but easily arousable. Denies overt fever or diarrhea. HEENT: Has a headache, but no lesions in ears, nose or throat or drainage. Chest: Denies any shortness of breath, but there is an occasional cough. Cardiovascular: Denies any chest pain or palpitations. GI: Significant for nausea and vomiting. No diarrhea. : Denies blood in urine or stool or painful urination. Musculoskeletal: He has diffuse muscle aches and pains in his major muscle groups, but no acute lesions and joints or muscles. Skin: No new rashes or lesions. Neurologic: He is agitated, but does not show any unique severe lesions or rashes. PHYSICAL EXAMINATION: VITAL SIGNS: At the time of admission, blood pressure is 141/74, pulse of 131, respiratory rate 22, temperature 98, pain scale is 0, O2 sat 100% on room air. GENERAL: This is a well-developed, well-nourished male, alert when stimulated responsive. HEENT: Normocephalic and atraumatic. Pupils equal, round, and reactive to light. Extraocular muscles are intact. TMs, nares, pharynx are clear. Membranes are dry. NECK: Supple, no mass. CHEST: Good breath sounds bilaterally without audible wheezes. HEART: Regular rate and rhythm, tachycardic. ABDOMEN: Soft, nontender without hepatosplenomegaly. : Deferred. EXTREMITIES: Without clubbing, cyanosis, or edema. Symmetrical muscular tone development noted. SKIN: Without acute rashes or lesions. Poor turgor noted. He is pale. NEUROLOGIC: Cranial nerves are intact. Untested gait and cerebellar function. Sensory exam is grossly intact. Mental status is significant for slowed mentation at this time, otherwise, nonfocal. LABORATORY DATA: WBCs are 15.9, hemoglobin 16.6, hematocrit 53.1 with a left shift. The pH is 7.206, pCO2 of 26, pO2 at 59. His lactic acid is 6.1. Chest x-ray shows no acute lesions on the chest. Sodium 138, potassium 5.2, chloride 101, CO2 8 with an anion gap of 34, BUN 16, creatinine 1.16 with a GFR of 74. Lipase is 20. Beta hydroxybutyrate is 9.1. UA shows greater than 1000 glucose with ketones in 80s. Liver functions normal. ASSESSMENT: 1. Diabetic ketoacidosis. 2. Insulin Dependent Diabetic 2. History of asthma. PLAN: Will be IV fluid resuscitation mainly. We will use insulin drip if he does not respond to this or sliding scale insulin depending on what is needed. We will monitor his electrolytes closely and serially reevaluate him. He will be given antiemetics as well. ERWIN
[2018-03-02] MEDS: Sodium Chloride 0.9% 1,000 ML IV SCH ×4 (02:50→22:55)
[2018-03-02] MEDS: Ondansetron PF 4 MG/2 ML Vial IVP PRN (03:42)
[2018-03-02 04:21] LABS: Hemoglobin 15.9 g/dL (14.0-18.0); Mean Corpuscular HGB CONC 31.9 g/dL (32.0-36.0); Mean Corpuscular Hemoglobin 28.3 pg (27.0-31.0); Mean Corpuscular Volume 88.7 fL (78.0-98.0); Platelet Count 409 thou/uL (130-400); RBC Distribution Width 12.9 % (11.5-14.5); Red Blood Cell (RBC) Count 5.62 mill/uL (4.70-6.10); White Blood Cell (WBC) Count 18.5 thou/uL (4.8-10.8)
[2018-03-02 04:30] LABS: Lactic Acid 1.5 mmol/L (0.5-2.2)
[2018-03-02 04:33] LABS: Hemoglobin A1c 10.5 % (4.0-6.0)
[2018-03-02 04:34] LABS: BUN (Urea Nitrogen) 15 mg/dL (8.9-20.6); Calc. Creatinine Clearance 91 mL/min (70-130); Calcium 8.9 mg/dL (7.8-10.44); Chloride 104 mmol/L (98-107); Estimated GFR-MDRD 59; Glucose 333 mg/dL (70-105); Potassium 5.5 mmol/L (3.5-5.1); Sodium 132 mmol/L (136-145)
[2018-03-02 04:39] LABS: Carbon Dioxide Less than 8 mmol/L (22-29)
[2018-03-02 04:40] LABS: Band 3 % (5-11); Lymphocytes 2 % (21-51); MDiff Complete? YES; Monocytes 6 % (0-10); Neutrophil 89 % (42-75); PLT Morphology Comment Appears Adequate; RBC Morphology Normal
[2018-03-02] MEDS: Metoclopramide HCl 10 MG/2 ML VIAL IVP SCH ×3 (08:45→20:22)
[2018-03-02 10:34] LABS: BUN (Urea Nitrogen) 14 mg/dL (8.9-20.6); Calc. Creatinine Clearance 93 mL/min (70-130); Calcium 8.5 mg/dL (7.8-10.44); Chloride 111 mmol/L (98-107); Estimated GFR-MDRD 61; Glucose 168 mg/dL (70-105); Potassium 4.4 mmol/L (3.5-5.1); Sodium 135 mmol/L (136-145)
[2018-03-02 10:41] LABS: Carbon Dioxide Less than 8 mmol/L (22-29)
--- NOTE | 2018-03-02 12:08 | CON ---
DATE OF CONSULTATION: 03/02/2018 SERVICE: Pulmonary Medicine. REASON FOR CONSULTATION: [facility] patient. HISTORY OF PRESENT ILLNESS: The patient is a brittle type 1 diabetic. He presented to the emergency department because of nausea and vomiting. He had severe dehydration. Overnight, he was hydrated and placed on insulin drip. This morning, he is fairly somnolent. He cannot provide much in the way of history, but indicates that he did not have any fevers, chills, cough, sputum production, dysuria, frequency, or hot, red, swollen joints or new rashes. PAST MEDICAL HISTORY: 1. Diabetes mellitus, type 1. 2. Asthma. PAST SURGICAL HISTORY: 1. Cholecystectomy. 2. Herniorrhaphy. 3. Tonsillectomy and adenoidectomy. SOCIAL HISTORY: [place] He chews tobacco, but does not smoke. He drinks occasionally. He denies any illicit drugs. He has no exposure to chemicals, dust asbestos or tuberculosis. FAMILY HISTORY: Noncontributory. ALLERGIES: HYDROCODONE. MEDICATIONS: Lists of his inpatient medications were reviewed. Multiple updates were made at this time. REVIEW OF SYSTEMS: General, head, ears, eyes, nose, throat, cardiovascular, respiratory, GI, , musculoskeletal, neurologic and skin is negative except as mentioned in the HPI. PHYSICAL EXAMINATION: VITAL SIGNS: Afebrile with T-max 99.8, pulse 113, blood pressure 134/84, respirations 17, saturation 100% on room air. GENERAL: The patient is awake, alert, no apparent distress. LUNGS: There is excellent air entry. There is no prolonged expiratory phase. I do not appreciate any crackles or wheezing. HEART: Normal rate, regular. ABDOMEN: Soft, nontender, nondistended. Bowel sounds are positive. MUSCULOSKELETAL: No cyanosis or clubbing. There is absolutely no pitting in the bilateral lower extremities. NEUROLOGIC: Grossly nonfocal. He is a little somnolent. LABORATORY DATA: WBC 18.5, hemoglobin 15.9, platelets 409,000. Neutrophil count is 89% on top of 3% bands. PH 7.2, pCO2 of 26 on a VBG. Bicarbonate is less than 8. It is actually been less than 8 on three separate draws. Anion gap cannot be calculated as a result. Creatinine 1.38 and down trending. Basic metabolic profile is otherwise unremarkable. Hemoglobin A1c 10.9, lactate is negative. Liver function studies were previously unremarkable and lipase was normal. Urinalysis is only positive for glycosuria and ketonuria. Beta hydroxybutyrate is 9.1. IMAGING DATA: Chest x-ray demonstrates no acute cardiopulmonary abnormality. ASSESSMENT: 1. Metabolic encephalopathy. 2. Diabetic ketoacidosis. 3. Type 1 diabetes mellitus. 4. Systemic inflammatory response syndrome. DISCUSSION AND PLAN: We will switch his IV fluids over to D5 normal saline at 150 an hour. We will look for increasing signs of sepsis and/or infection. If we identify something, empiric antibiotics will be initiated. I am going to repeat ABG to make certain that the acidosis is actually clearing. My suspicion is that the persistent low bicarbonate could reflect the crystalloid that we gave and delay in initiating insulin. He should remain in the ICU on an insulin drip until the gap closes, his mentation improves, and he has improved appetite. 70 minutes have been devoted to this patient in various activities. I personally reviewed all imaging studies and laboratory data noted within this document. For fifty percent of this time, I was interacting with the patient at the bedside or coordinating care with the care team. For the remainder of the time I was immediately available to the patient in the hospital unit. ERWIN
[2018-03-02] MEDS: Dextrose 5 % And 0.9 % NaCl 1,000 ML IV SCH ×2 (13:05→20:26)
[2018-03-02 14:50] LABS: Anion Gap 15 mmol/L (10-20); BUN (Urea Nitrogen) 13 mg/dL (8.9-20.6); Calc. Creatinine Clearance 104 mL/min (70-130); Calcium 8.4 mg/dL (7.8-10.44); Carbon Dioxide 12 mmol/L (22-29); Chloride 110 mmol/L (98-107); Estimated GFR-MDRD 68; Glucose 153 mg/dL (70-105); Potassium 4.4 mmol/L (3.5-5.1); Sodium 133 mmol/L (136-145)
[2018-03-02] MEDS ORDERED: Dextrose 5% in Water 1,000 ML IV PRN (16:59)
[2018-03-02] MEDS ORDERED: Dextrose 50% Abboject 50 ML SYRINGE IVP PRN (16:59)
[2018-03-02] MEDS: Insulin Regular 300 UNITS/3 ML VIAL SC PRN ×2 (18:26→20:29)
[2018-03-02] MEDS: Mometasone/Formoterol 120 PUFF INHALER INH SCH (18:59)
[2018-03-02] MEDS ORDERED: Montelukast Sodium 10 mg Tablet PO SCH (21:00)
[2018-03-03] MEDS: Metoclopramide HCl 10 MG/2 ML VIAL IVP SCH ×3 (01:48→14:38)
[2018-03-03 04:02] LABS: #Lymphocytes 0.8 thou/uL (1.20-3.40); #Monocytes 0.7 thou/uL (0.11-0.59); #Neutrophils 6.4 thou/uL (1.40-6.50); %Basophils 0.2 % (0.0-1.0); %Eosinophils 0.6 % (0.0-10.0); %Lymphocytes 10.3 % (21.0-51.0); %Monocytes 8.4 % (0.0-10.0); %Neutrophils 80.5 % (42.0-75.0); Hemoglobin 14.7 g/dL (14.0-18.0); Mean Corpuscular HGB CONC 32.7 g/dL (32.0-36.0); Mean Corpuscular Volume 85.7 fL (78.0-98.0); Platelet Count 329 thou/uL (130-400); RBC Distribution Width 12.9 % (11.5-14.5); Red Blood Cell (RBC) Count 5.24 mill/uL (4.70-6.10)
[2018-03-03 04:18] LABS: Anion Gap 19 mmol/L (10-20); BUN (Urea Nitrogen) 12 mg/dL (8.9-20.6); Calc. Creatinine Clearance 107 mL/min (70-130); Calcium 8.8 mg/dL (7.8-10.44); Carbon Dioxide 13 mmol/L (22-29); Chloride 109 mmol/L (98-107); Estimated GFR-MDRD 71; Glucose 254 mg/dL (70-105); Potassium 3.9 mmol/L (3.5-5.1); Sodium 137 mmol/L (136-145)
[2018-03-03] MEDS: Dextrose 5 % And 0.9 % NaCl 1,000 ML IV SCH (04:41)
[2018-03-03] MEDS: Calcium Carbonate 500 MG ChewTAB PO PRN ×2 (04:47→11:14)
[2018-03-03] MEDS: Insulin Regular 300 UNITS/3 ML VIAL SC PRN (06:19)
[2018-03-03] MEDS: Mometasone/Formoterol 120 PUFF INHALER INH SCH (07:38)
[2018-03-03] MEDS ORDERED: Insulin NPH/Reg Insulin Hm 300 UNITS/3 ML VIAL SC SCH (07:45)
[2018-03-03] MEDS: Sodium Chloride 0.9% 1,000 ML IV SCH (09:05)
[2018-03-03] MEDS ORDERED: D5 1/2 NS w/20 mEq KCL 1,000 ML ONE (09:31)
[2018-03-03] MEDS ORDERED: Sodium Chloride 0.9% 1,000 ML IV PRN ×4 (10:56)
[2018-03-03] MEDS ORDERED: NS 0.9% w/ 20 MEQ KCL 1,000 ML/1,000 ML BAG IV PRN ×2 (10:56)
[2018-03-03] MEDS ORDERED: Dextrose 5 %-0.45 % NaCl 1,000 ML IV PRN (10:56)
[2018-03-03] MEDS ORDERED: D5 1/2 NS w/20 mEq KCL 1,000 ML IV PRN (10:56)
[2018-03-03] MEDS ORDERED: ADD ELECTROLYTE REPLACEMENT SET TO PROFILE FS SCH (11:00)
[2018-03-03] MEDS ORDERED: Magnesium 2 GM/NS 0.9% 100 ML 2 GM in Premix Bag 1 BAG IVPB PRN (11:02)
[2018-03-03] MEDS ORDERED: Potassium Chloride 40 MEQ in Premix Bag 1 BAG IVPB PRN (11:02)
[2018-03-03] MEDS ORDERED: Potassium Chloride 40 MEQ in Sodium Chloride 0.9% 250 ML 250 ML IVPB PRN (11:02)
[2018-03-03] MEDS ORDERED: CCU ELECTROLYTE REPLACEMENT PROTOCOL FS PRN (11:02)
[2018-03-03] MEDS ORDERED: Potassium Chloride 20 MEQ TAB PO PRN (11:02)
[2018-03-03] MEDS ORDERED: Potassium Phosphate 12 MMOL in Sodium Chloride 0.9% 250 ML 250 ML IV PRN (11:02)
[2018-03-03] MEDS ORDERED: Potassium Phosphate 9 MMOL in Sodium Chloride 0.9% 100 ML IVPB PRN (11:02)
[2018-03-03] MEDS ORDERED: Magnesium Oxide 400 MG TAB PO PRN ×2 (11:02)
[2018-03-03] MEDS ORDERED: Potassium Phosphate 15 MMOL in Sodium Chloride 0.9% 250 ML 250 ML IV PRN (11:02)
[2018-03-03 11:23] VITALS: BP 134/80; TEMP 98.4
--- NOTE | 2018-03-03 12:47 | PRG ---
DATE OF SERVICE: 03/03/2018 SERVICE: Pulmonary Medicine INTERVAL HISTORY: Last night, the patient's gap was still wide open. He was not tolerating any p.o. He was upset to his stomach. Either way, he converted back to subcu insulin. Overnight, his gap h as actually increased. He continues to not have an appetite. Denies any current fevers, chills, gustavo sea or vomiting. He has no sputum production. He is otherwise in his usual state of health. PHYSICAL EXAMINATION: VITAL SIGNS: Afebrile, pulse 89, blood pressure 134/80, respirations 15, saturation 99% on room air. GENERAL: The patient is awake, alert, in no apparent distress. LUNGS: Excellent air entry. There is no prolonged expiratory phase or wheezing present. HEART: Normal rate, regular. ABDOMEN: Soft, nontender, nondistended. Bowel sounds are positive. MUSCULOSKELETAL: No cyanosis or clubbing. There is no pitting in the bilateral lower extremities. NEUROLOGIC: Grossly nonfocal. LABORATORY DATA: WBC 8.0, hemoglobin 14.7, platelets 329,000. Creatinine 1.20 and down trending. B asic metabolic profile has improved significantly. That being said, the anion gap is still elevated at 19 with a bicarbonate that is only 13. The anion gap and bicarbonate are both trending in the wro ng direction. ASSESSMENT: 1. Diabetic ketoacidosis. 2. Type 1 diabetes mellitus. 3. Metabolic encephalopathy, resolved. 4. Systemic inflammatory response, resolved. DISCUSSION AND PLAN: The patient will be restarted on his insulin drip. He will need to remain in t he ICU on an insulin drip until his gap is closed and he has an appetite. Once that occurs, we can m dylan the transition over to subcutaneous insulin. Pulmonary Critical Care will continue to follow nancy ng in this location, but when lands on the floor, he will have no further requirement for Critical Ca re opinion, and we will sign off. Please call with additional questions or concerns moving forward.
[2018-03-03 13:28] LABS: Anion Gap 14 mmol/L (10-20); BUN (Urea Nitrogen) 10 mg/dL (8.9-20.6); Calc. Creatinine Clearance 104 mL/min (70-130); Calcium 8.6 mg/dL (7.8-10.44); Carbon Dioxide 20 mmol/L (22-29); Chloride 106 mmol/L (98-107); Estimated GFR-MDRD 69; Glucose 351 mg/dL (70-105); Magnesium 1.7 mg/dL (1.6-2.6); Potassium 3.8 mmol/L (3.5-5.1); Sodium 136 mmol/L (136-145)
[2018-03-03] MEDS ORDERED: Sodium Phosphate 30 MMOL in Sodium Chloride 0.9% 250 ML 250 ML IVPB SCH (14:15)
--- NOTE | 2018-03-03 17:05 | EKG ---
Test Reason : EMESIS Blood Pressure : / mmHG Vent. Rate : 111 BPM Atrial Rate : 111 BPM P-R Int : 132 ms QRS Dur : 082 ms QT Int : 316 ms P-R-T Axes : 057 052 055 degrees QTc Int : 429 ms Sinus tachycardia Otherwise normal ECG Confirmed by JAYDEN PICKARD ([id number]), graphic editor ASHA WIGGINS ([id number] on 03/03/2018 5:04:28 PM Referred By: Confirmed By:JAYDEN PICKARD
== END 2018-03-03 15:30 | disposition left against medical advice (07) | DRG 637 ==
LOC: ERS 14:24 → IMCU/EMU 18:33
PROVIDERS: ADMIT Specialist; ATTEND Specialist
DX: E10.10 Type 1 diabetes mellitus with ketoacidosis without coma (principal); G93.41 Metabolic encephalopathy; R65.11 Systemic inflammatory response syndrome (SIRS) of non-infectious origin with acute organ dysfunction; Z79.4 Long term (current) use of insulin; J45.909 Unspecified asthma, uncomplicated; Z90.49 Acquired absence of other specified parts of digestive tract; E86.0 Dehydration; F17.220 Nicotine dependence, chewing tobacco, uncomplicated
CPT/HCPCS: 36415; 36416; 71045; 80048; 80053; 81003; 82010; 82330; 82803; 83036; 83605; 83690; 83735; 84100; 85025; 87086; 93005; 96361; 96365; 96366; 96375; 96376; J1200; J1815; J2405; J2550; J2765; J7050

== ENCOUNTER 2018-05-11 09:28 | Emergency (ER) | payer SELFPAY ==
[2018-05-11] MEDS ORDERED: Insulin Regular 300 UNITS/3 ML VIAL ONE (09:51)
[2018-05-11 09:55] LABS: #Basophils 0.1 thou/uL (0.0-0.2); #Eosinphils 0.1 thou/uL (0.0-0.7); #Lymphocytes 2.9 thou/uL (1.20-3.40); #Monocytes 0.9 thou/uL (0.11-0.59); #Neutrophils 11.8 thou/uL (1.40-6.50); %Basophils 0.6 % (0.0-1.0); %Eosinophils 0.9 % (0.0-10.0); %Lymphocytes 18.1 % (21.0-51.0); %Monocytes 5.8 % (0.0-10.0); %Neutrophils 74.6 % (42.0-75.0); Hemoglobin 16.7 g/dL (14.0-18.0); Mean Corpuscular HGB CONC 30.9 g/dL (32.0-36.0); Mean Corpuscular Hemoglobin 28.4 pg (27.0-31.0); Mean Corpuscular Volume 91.9 fL (78.0-98.0); Mean Platelet Volume 7.2 fL (7.4-10.4); Platelet Count 474 thou/uL (130-400); RBC Distribution Width 12.8 % (11.5-14.5); Red Blood Cell (RBC) Count 5.87 mill/uL (4.70-6.10); White Blood Cell (WBC) Count 15.8 thou/uL (4.8-10.8)
--- NOTE | 2018-05-11 10:28 | RAD ---
CHEST ONE VIEW: History: Hyperglycemia. Chest pain. Comparison: 03-01-18 FINDINGS: Cardiac silhouette is magnified by projection. Pulmonary vasculature are unremarkable. Mediastinum is midline. No confluent airspace consolidation, pneumothorax or pleural fluid. IMPRESSION: No active cardiopulmonary abnormalities are demonstrated. POS: [facility]
[2018-05-11 10:38] LABS: ALT (SGPT) 30 U/L (8-55); AST (SGOT) 28 U/L (5-34); Alkaline Phosphatase 124 U/L (40-150); BUN (Urea Nitrogen) 15 mg/dL (8.9-20.6); Bilirubin, Total 0.5 mg/dL (0.2-1.2); Calc. Creatinine Clearance 0 mL/min (70-130); Calcium 11.1 mg/dL (7.8-10.44); Carbon Dioxide Less than 8 mmol/L (22-29); Chloride 97 mmol/L (98-107); Estimated GFR-MDRD 41; Globulin 3.3 g/dL (2.4-3.5); Glucose 430 mg/dL (70-105); Lipase 16 U/L (8-78); Potassium 5.8 mmol/L (3.5-5.1); Protein, Total 8.3 g/dL (6.0-8.3); Sodium 131 mmol/L (136-145)
== END 2018-05-11 11:05 | disposition left against medical advice (07) ==
LOC: ERS 09:28
DX: E10.10 Type 1 diabetes mellitus with ketoacidosis without coma (principal); N17.9 Acute kidney failure, unspecified; E87.5 Hyperkalemia; J45.909 Unspecified asthma, uncomplicated; F17.220 Nicotine dependence, chewing tobacco, uncomplicated; Z79.84 Long term (current) use of oral hypoglycemic drugs
CPT/HCPCS: 36416; 71045; 80053; 82010; 83690; 84484; 85025; 93005; 94760; 96361; 96374; J1815

== ENCOUNTER 2018-06-27 10:52 | Emergency (ER) | payer SELFPAY ==
[2018-06-27] MEDS ORDERED: Fluorescein Opthalmic Strip ONE (11:20)
[2018-06-27] MEDS ORDERED: Proparacaine 0.5% Opth 15 ML BOT ONE (11:20)
== END 2018-06-27 12:19 | disposition home or self-care (01) ==
LOC: SCSER 10:52
DX: T15.02XA Foreign body in cornea, left eye, initial encounter (principal); E10.9 Type 1 diabetes mellitus without complications; F17.220 Nicotine dependence, chewing tobacco, uncomplicated; J45.909 Unspecified asthma, uncomplicated
CPT/HCPCS: 99283